=== PATIENT | female | born 1980 | race Caucasian/White ===

== ENCOUNTER 2023-02-21 12:22 | Emergency (ER) | payer BC ==
[~2023-02-21] VITALS: Ht 162.6 cm; Wt 110.0 kg
[2023-02-21 12:41] VITALS: BP 157/91; PULSE 97; RESP 18; TEMP 97; O2SAT 97
== END 2023-02-21 14:07 | disposition left against medical advice (07) ==
LOC: ER 12:23
DX: M54.9 Dorsalgia, unspecified (principal); M79.605 Pain in left leg; Z53.21 Procedure and treatment not carried out due to patient leaving prior to being seen by health care provider
CPT/HCPCS: 99281